=== PATIENT | male | born 1970 | race Caucasian/White ===

== ENCOUNTER 2017-01-10 21:39 | Observation (INO) ==
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
[2017-01-11] MEDS ORDERED: MAGNESIUM SULF RIDER 4 GM in PREMIX 1 EACH IV PRN (00:31)
[2017-01-11] MEDS ORDERED: MORPHINE 2 MG/1 ML SYRINGE IV PRN (00:31)
[2017-01-11] MEDS ORDERED: POTASSIUM CHLORIDE 20 MEQ TABLET PO PRN (00:31)
[2017-01-11] MEDS ORDERED: MAGNESIUM SULF RIDER 2 GM in PREMIX 1 EACH IV PRN ×2 (00:31→10:41)
[2017-01-11] MEDS ORDERED: ONDANSETRON 4 MG/2 ML VIAL IV PRN (00:31)
[2017-01-11 01:10] LABS: Basophils # 0.1 10*3/uL (0.0-0.2); Basophils % 0.5 % (0.0-0.8); Eosinophils % 0.2 % (0.00-10.9); Hematocrit 46.2 VOL% (42.0-52.0); Hemoglobin 16.2 GM/DL (14.0-18.0); Immature Granulocytes Absolute 0.12 #; Lymphocytes # 1.3 10*3/uL (1.4-4.0); Lymphocytes % 10.5 % (21.2-54.2); Mean Corpuscular HGB Conc 35.1 GM/DL (32-36); Mean Corpuscular Hemoglobin 27 PG (27-34); Mean Corpuscular Volume 77.4 FL (87-102); Mean Platelet Volume 10.6 FL (9.6-12.0); Monocytes # 0.7 10*3/uL (0.11-0.8); Monocytes % 5.6 % (1.7-12.7); Neutrophils # 10.2 10*3/uL (1.4-7.4); Neutrophils % 82.2 % (38.7-73.9); Platelet Count 232 T/CUMM (130-400); Red Blood Count 5.97 MC/CUMM (3.8-5.5); Red Cell Distribution Width 13.7 % (9.3-17.3); White Blood Count 12.4 T/CUMM (4-12)
[2017-01-11] MEDS: SODIUM CHLORIDE 0.9% 1,000 ML IV SCH ×2 (01:30→17:55)
[2017-01-11] MEDS: NITROGLYCERIN 2% OINT 1 INCH/GM PACK TOP SCH ×3 (01:30→13:10)
[2017-01-11 01:33] LABS: Troponin I Only 0.035 NG/ML (0.00-0.045)
[2017-01-11 01:41] LABS: Albumin 4.3 G/DL (3.4-5.0); Bilirubin,Total 0.4 MG/DL (0.2-1.0); Calcium 9.1 MG/DL (8.5-10.1); Magnesium 3.7 MG/DL (1.8-2.4); Potassium 4.2 MMOL/L (3.5-5.1); Risk Ratio 6.59; Thyroid Stimulating Hormone 1.09 uIU/ml (0.358-3.74); Total Protein 7.1 G/DL (6.4-8.3); VLDL CHOLESTEROL 35.4 MG/DL
--- NOTE | 2017-01-11 02:52 | EKG Report ---
Stationary ECG Study [facility] ER Test Date: 01/10/2017 10:07:42 PM Pat Name: BETINA FAJARDO Department: Room: 279 Gender: M Call Center Professional: TRINIDAD QUEVEDO RN : 1970 Requested by: René Byrne Order Number: [id number] Jerod MD: ELENA DELACRUZ Intervals [place] Rate: 76 P: 27 MT: 163 QRS: -14 QRSD: 87 T: 16 QT: 366 QTc: 396 Interpretive Statements SINUS RHYTHM NORMAL ECG Electronically Signed On 01-13-17 12:09:27 CDT by ELENA DELACRUZ [email or web address]
--- NOTE | 2017-01-11 02:53 | EKG Report ---
Stationary ECG Study [facility] Test Date: 01/11/2017 12:54:20 AM Pat Name: BETINA FAJARDO Department: Room: 279 Gender: M Escrow Processor: : 1970 Requested by: René Byrne Order Number: [id number] Reading MD: ELENA DELACRUZ Intervals [place] Rate: 75 P: 63 GA: 165 QRS: 31 QRSD: 94 T: 60 QT: 385 QTc: 414 Interpretive Statements SINUS RHYTHM Electronically Signed On 01-13-17 14:01:27 CDT by ELENA DELACRUZ [email or web address]
--- NOTE | 2017-01-11 07:09 | EKG Report ---
Stationary ECG Study [facility] Test Date: 01/11/2017 7:10:15 AM Pat Name: BETINA FAJARDO Department: Room: 279 Gender: M Spanner Operator: KVNG : 1970 Requested by: René Byrne Order Number: [id number] Reading MD: ELENA DELACRUZ Intervals [place] Rate: 72 P: 44 IA: 165 QRS: -2 QRSD: 92 T: 24 QT: 392 QTc: 417 Interpretive Statements SINUS RHYTHM Electronically Signed On 01-13-17 14:06:42 CDT by ELENA DELACRUZ [email or web address]
--- NOTE | 2017-01-11 07:44 | XRay Report ---
Exam: XR chest 1V portable Date: 01/11/2017 4:00 AM Indication: Shortness of breath Comparison: None Technical: AP Findings: A few reticular nodular densities are present. External cardiac leads are present. The heart is normal in size. No obvious infiltrates or effusions. Mediastinum is intact. Impression: 1. No acute cardiopulmonary pathology. PROCEDURE INTERPRETED AT [facility] DEPARTMENT OF RADIOLOGY Final Report Signed by: Dr. Marcus Beck
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
[2017-01-11] MEDS ORDERED: PANTOPRAZOLE 40 MG TABLET PO SCH ×2 (09:00)
[2017-01-11] MEDS ORDERED: ASPIRIN EC 325 MG TABLET PO SCH (09:00)
[2017-01-11] MEDS ORDERED: METOPROLOL TARTRATE 25 MG TABLET PO SCH ×2 (09:00→21:00)
[2017-01-11] MEDS ORDERED: ENOXAPARIN 120 MG/0.8 ML SYRINGE SUBCUT SCH (09:00)
[2017-01-11 10:07] LABS: Troponin I Only 0.046 NG/ML (0.00-0.045)
[2017-01-11] MEDS ORDERED: POTASSIUM CHLORIDE RIDER 10 MEQ in PREMIX 1 EACH IV PRN (10:41)
[2017-01-11] MEDS ORDERED: diphenhydrAMINE CAP 25 MG CAPSULE PO ONE (10:41)
[2017-01-11] MEDS ORDERED: DIAZEPAM 5 MG TABLET PO ONE (10:41)
--- NOTE | 2017-01-11 10:41 | History and Physical Update ---
Sedation H&P Update - History and Physical H&P was reviewed, the patient examined and there: are no changes in the patients condition since last H&P was completed. - Dictation Physical: refer to H&P completed by admitting physician - Physical Exam Mental Status: alert and oriented Heart: regular rate and rhythm Lung: clear to auscultation Abdomen: within normal limits Vitals: within normal limits - Sedation Plan for Sedation: moderate Patient Consent: Procedure disscussed with patient and patinet has consented., Risks and benefits were discussed with patient,including infection,, bleeding, injury to surrounding structures, seizure, temporary nerve, Patient understands and accepts potential risks/benefits and agrees to, proceed. ASA Class: II Airway Assessment: Class II: Soft palate, uvula, fauces visible
--- NOTE | 2017-01-11 12:41 | History and Physical Update ---
Sedation H&P Update - History and Physical H&P was reviewed, the patient examined and there: are no changes in the patients condition since last H&P was completed. - Dictation Physical: refer to scanned H&P - Physical Exam Mental Status: alert and oriented Heart: regular rate and rhythm Lung: clear to auscultation Abdomen: within normal limits Vitals: within normal limits - Sedation Plan for Sedation: moderate Patient Consent: Procedure disscussed with patient and patinet has consented., Risks and benefits were discussed with patient,including infection,, bleeding, injury to surrounding structures, seizure, temporary nerve, Patient understands and accepts potential risks/benefits and agrees to, proceed. ASA Class: II Airway Assessment: Class III: Soft palate, base of uvula visible
[2017-01-11] MEDS ORDERED: fentaNYL 100 MCG/2 ML VIAL ONE (13:38)
[2017-01-11] MEDS ORDERED: VERAPAMIL 5 MG/2 ML VIAL ONE (13:38)
[2017-01-11] MEDS ORDERED: MIDAZOLAM 2 MG/2 ML VIAL ONE (13:38)
[2017-01-11] MEDS ORDERED: LIDOCAINE 1% 20 ML VIAL ONE (13:38)
[2017-01-11] MEDS ORDERED: HEPARIN/NACL 0.9% 2 UNITS/ML 1,000 ML IV ONE (13:38)
[2017-01-11] MEDS ORDERED: NITROGLYCERIN DRIP 50 MG/250 ML BOTTLE IV ONE (13:38)
--- NOTE | 2017-01-11 14:18 | Cardiac Catheterization ---
Date of Procedure:: 01/11/17 Pre-op Diagnosis: Abnormal cardiac biomarkers with risk factors Post-op diagnosis: same Procedure: Procedures: 1. Selective left and right coronary angiography 2. Left heart catheterization resting hemodynamic After signed an informed consent was obtained, the patient was prepped and draped in standard fashion for right radial access. Time out was recorded. 0.5 mL of 1% lidocaine were infiltrated in the skin and subcutaneous tissue overlying the right radial artery and Seldinger technique was utilized with a Angiocath to obtain access to the right radial artery. A NanoGramumHubSpot glide wire was then advanced into the midforearm under fluoroscopic guidance. The Angiocath was removed and a 6 [place] Terumo glide sheath was placed over the Glidewire. The sheath was aspirated and flushed and then 5 mg of verapamil and 200 g of nitroglycerin were given through the sheath. At this time an 035 J-wire was used to guide a [place] 6 [place]uan catheter into the central aorta across the aortic valve and into the ventricle. A 10 mL injection of contrast was used for ventriculography in the RYAN projection. Pressure measurements and pullback measurements were obtained. The [place] catheter was then used to engage the left main coronary artery and multiple orthogonal views of the left system were obtained. The catheter then was torqued into the right coronary artery and orthogonal views of the right system were obtained. The catheter was then exchanged over the wire. The sheath was aspirated and flushed. The projection welding machine operator reviewed the films. And a TR band was placed over the glide sheath and used for hemostasis. Total contrast exposure 40 cc of omnipaque Total x-ray exposure: 2.2 min fluoroscopy time and 160 mGy air Kerma Findings: 1. EF not assessed. 2. Hemodynamics LV: 129/10 EDP:19 Ao:127/84 3. Left main:Angiographically normal 4: Left anterior descending artery:Mild plaque in the mid LAD. No significant luminal narrowing 5: Left circumflex artery:Non-dominant and angiographically normal 6: Right coronary artery:Dominant and angiographically normal Assessment: 1. No significant CADz 2. Elevated end diastolic pressure Plan: 1. Therapeutic lifestyle changes. 2. Risk factor modification. Implants: None none Anesthesia: moderate conscious sedation Surgeon / Physician: Zuri Aguilar Dustless Operator: none Estimated blood loss: none Specimens: none sent Condition: stable Disposition: floor - Medications / Follow-up
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
--- NOTE | 2017-01-11 16:26 | EKG Report ---
Stationary ECG Study [facility] Test Date: 01/11/2017 4:25:30 PM Pat Name: BETINA FAJARDO Department: Room: 279 Gender: M General Magistrate: [place] : 1970 Requested by: René Byrne Order Number: [id number] Reading MD: ELENA DELACRUZ Intervals [place] Rate: 58 P: 20 WV: 161 QRS: -8 QRSD: 94 T: 27 QT: 432 QTc: 429 Interpretive Statements SINUS RHYTHM Electronically Signed On 01-14-17 16:21:03 CDT by ELENA DELACRUZ [email or web address]
[2017-01-11 17:12] LABS: Troponin I Only 0.033 NG/ML (0.00-0.045)
[2017-01-11 17:52] VITALS: BP 142/84
[2017-01-11] MEDS ORDERED: ROSUVASTATIN 20 MG TABLET PO SCH (21:00)
== END 2017-01-11 19:10 | disposition home or self-care (01) | DRG 204 ==
LOC: N.ED 21:39 → N.EDINP 22:48 → INTOOBSV 22:48 → N.TELES 23:50
PROVIDERS: ADMIT Internal Medicine Cardiovascular Disease; ATTEND Internal Medicine Cardiovascular Disease
PROC: CLCCHCL (ICD-10-PCS; 2017-01-11 13:15)